=== PATIENT | female | born 1950 | race Caucasian/White ===

== ENCOUNTER 2018-11-10 09:42 | Emergency (ER) | payer OTHER ==
[2018-11-10 11:45] VITALS: BP 138/66
--- NOTE | 2018-11-10 12:08 | UC ---
Hand/Wrist HPI - HPI Summary HPI Summary: 68 yo female with right wrist pain x 1 day no trauma swelling radial aspect x years after IV see is right handed - History Of Current Complaint Chief Complaint: UCUpperExtremity Stated Complaint: RT WRIST COMPLAINT Time Seen by Provider: 11/10/18 11:59 Onset/Duration: Sudden Onset, Lasting Hours Severity Initially: Mild Severity Currently: Severe Pain Intensity: 10 Pain Scale Used: 0-10 Numeric Character Of Pain: Aching Aggravating Factor(s): Movement, Flexion, Extension, Twisting Alleviating Factor(s): Rest Associated Signs And Symptoms: Positive: Negative Related History: Dominant Hand Right Hands: 1 - swollen 2 - tender, decreased ROM ping when trying to move wrist radial aspect - Allergies/Home Medications Allergies/Adverse Reactions: Allergies Allergy/AdvReac Type Severity Reaction Status Date / Time tetanus and diphtheria Allergy Swelling Verified 11/10/18 11:45 toxoids Home Medications: Home Medications Aspirin 325 mg PO DAILY 11/10/18 [History Confirmed 11/10/18] Carvedilol 6.25 mg PO DAILY 11/10/18 [History Confirmed 11/10/18] Clopidogrel Bisulfate [Plavix] 75 mg PO DAILY 11/10/18 [History Confirmed ] Escitalopram * [Lexapro *] 20 mg PO DAILY 11/10/18 [History Confirmed 11/10/18] Fluticasone NASAL SPRAY 50MCG* [Flonase NASAL SPRAY 50MCG*] 1 spray INH DAILY [History Confirmed 11/10/18] Melatonin [Meladox] 3 mg PO DAILY 11/10/18 [History Confirmed 11/10/18] Ramipril 5 mg PO DAILY 11/10/18 [History Confirmed 11/10/18] Simvastatin [Zocor] 20 mg PO DAILY 11/10/18 [History Confirmed 11/10/18] PMH/Surg Hx/FS Hx/Imm Hx Previously Healthy: Yes Endocrine History: Dyslipidemia Cardiovascular History: Hypertension Neurological History: CVA - Surgical History Surgical History: Yes Surgery Procedure, Year, and Place: abscess in stomach -ruptured - Family History Known Family History: Positive: Hypertension - Social History Alcohol Use: None Substance Use Type: None Smoking Status (MU): Never Smoked Tobacco Review of Systems All Other Systems Reviewed And Are Negative: Yes Constitutional: Positive: Negative Skin: Positive: Negative Eyes: Positive: Negative ENT: Positive: Negative Respiratory: Positive: Negative Cardiovascular: Positive: Negative Gastrointestinal: Positive: Negative Genitourinary: Positive: Negative Motor: Positive: Negative Neurovascular: Positive: Negative Musculoskeletal: Positive: Arthralgia Neurological: Positive: Negative Psychological: Positive: Negative Physical Exam Triage Information Reviewed: Yes Appearance: Well-Appearing, No Pain Distress, Well-Nourished Vital Signs: Initial Vital Signs Temp 98.3 F 11/10/18 11:40 Pulse 71 11/10/18 11:40 Resp 18 11/10/18 11:40 BP 138/66 11/10/18 11:40 Pulse Ox 96 11/10/18 11:40 Vital Signs Reviewed: Yes Eyes: Positive: Conjunctiva Clear ENT: Positive: Pharynx normal. Negative: Nasal congestion, Nasal drainage, Trismus, Muffled voice, Hoarse voice, Sinus tenderness Neck: Positive: Nontender, No Lymphadenopathy Respiratory: Positive: Lungs clear, Normal breath sounds, No respiratory distress, No accessory muscle use Cardiovascular: Positive: RRR, No Murmur Musculoskeletal: Positive: Other: - see image, + [place] right Neurological: Positive: Alert Psychological Exam: Normal Hand/Wrist Course/Dx - Differential Dx/Diagnosis Provider Diagnosis: Tendonitis of wrist, right Discharge - Sign-Out/Discharge Documenting (check all that apply): Patient Departure All imaging exams completed and their final reports reviewed: Yes - Discharge Plan Condition: Stable Disposition: HOME Patient Education Materials: Tendinitis (ED) Referrals: Colin Viveros MD [Medical Doctor] - 3 Days (recheck in 3-14 days) Additional Instructions: thumb spica splint warm soaks frequently with range of motion as directed massage tylenol - Billing Disposition and Condition Condition: STABLE Disposition: Home
== END 2018-11-10 13:08 | disposition home or self-care (01) ==
LOC: UCCORT 09:42
DX: M77.9 Enthesopathy, unspecified (principal); I10 Essential (primary) hypertension; Z79.82 Long term (current) use of aspirin; Z86.73 Personal history of transient ischemic attack (TIA), and cerebral infarction without residual deficits; Z79.899 Other long term (current) drug therapy; Z88.7 Allergy status to serum and vaccine
CPT/HCPCS: 99202; G0463